=== PATIENT | female | born 1955 | race Asian ===

== ENCOUNTER 2021-02-15 08:37 | Day surgery (SDC) | payer OTHER, SELFPAY ==
[~2021-02-15] VITALS: Ht 160 cm; Wt 50.8 kg
[~2021-02-15 08:37] MED LIST: CEFAZOLIN SOD 1 GM in D5W 50 ML IV ONE
[2021-02-15] MEDS ORDERED: METOCLOPRAMIDE HCL 10 MG/2 ML VIAL IVP PRN (11:45)
[2021-02-15] MEDS ORDERED: HYDROmorphone 1 MG/ML INJ. CARTRIDGE IVP PRN ×4 (11:45→14:45)
[2021-02-15] MEDS ORDERED: LR 1,000 ML IV SCH (11:45)
[2021-02-15] MEDS ORDERED: MEPERIDINE HCL/PF 25 MG/ML DISP.SYRIN IVP PRN (11:45)
[2021-02-15] MEDS ORDERED: MIDAZOLAM HCL 5 MG/ML VIAL (VERSED) IV ONE (12:34)
[2021-02-15] MEDS ORDERED: DEXAMETHASONE SOD PHOSPHATE 4 MG/ML VIAL ONE (12:34)
[2021-02-15] MEDS ORDERED: ROCURONIUM BROMIDE 10 MG/ML (ZEMURON) ONE (12:34)
[2021-02-15] MEDS ORDERED: DESFLURANE 15 MIN GAS INH ONE (12:34)
[2021-02-15] MEDS ORDERED: NS 1000 ML IV.SOLN IV ONE (12:34)
[2021-02-15] MEDS ORDERED: LR 1,000 ML IV.SOLN IV ONE (12:34)
[2021-02-15] MEDS ORDERED: LIDOCAINE 2%, 20 ML MDV ONE (12:34)
[2021-02-15] MEDS ORDERED: fentaNYL CITRATE/PF 100 MCG/2 ML AMP ONE (12:34)
[2021-02-15] MEDS ORDERED: ONDANSETRON HCL 4 MG/2 ML VIAL ONE (12:34)
[2021-02-15] MEDS ORDERED: NS IRRIG SOLN 1000 ML IR ONE (12:34)
[2021-02-15] MEDS ORDERED: SUGAMMADEX SODIUM 200 MG/2 ML VIAL IV ONE (12:34)
[2021-02-15] MEDS ORDERED: BUPIVACAINE /PF 0.25% 30 ML VIAL INJ ONE (12:34)
[2021-02-15 14:13] VITALS: BP_SYST 124
[2021-02-15] MEDS ORDERED: D5/0.45 NS 1,000 ML IV SCH (14:45)
[2021-02-15] MEDS ORDERED: HYDROcodone/ACETAMIN 5-325 MG TAB (NORCO/ VICODIN) PO PRN ×2 (14:45)
== END 2021-02-15 14:47 | disposition home or self-care (01) ==
LOC: SDS 08:37 → SMU 08:38 → SDS 14:47
PROVIDERS: ATTEND Colon & Rectal Surgery
DX: K36 Other appendicitis (principal); Z79.899 Other long term (current) drug therapy; Z20.822 Contact with and (suspected) exposure to COVID-19
CPT/HCPCS: 44970; 88304; C1727; C9399; J0690; J1100; J2001; J2250; J2405; J3010; J3490; J7030; J7060; J7120; U0003